=== PATIENT | female | born 1990 | race Caucasian/White ===

== ENCOUNTER 2016-07-19 11:50 | Inpatient (IN) | payer BC, MEDICAID ==
[~2016-07-19] VITALS: Ht 162.6 cm; Wt 85.8 kg
[2016-08-26] VITALS (55 sets, daily range): BP systolic 102–147; BP diastolic 55–92; PULSE 51–96; TEMP 97.7–98.4
[2016-08-26] MEDS ORDERED: PRENATAL MVI (07:30)
[2016-08-26] MEDS ORDERED: ZANTAC 7575 MG PO (07:31)
[2016-08-26 07:52] LABS: BASO % 0.1 % (0.0-2.0); EOS # 0.1 (0.0-0.7); EOS % 1.4 % (0-4.0); GRAN # 6.7 (1.4-6.5); GRAN % 72.8 % (42.2-75.2); HEMOGLOBIN 13.4 g/dl (12.5-16.0); LYMPH # 1.9 (1.2-3.4); LYMPH % 20.1 % (20.0-51.0); MEAN CELL VOLUME 87 fl (80.0-100.0); MEAN CORPUSCULAR HEMOGLOBIN 30 pg (27.0-31.0); MEAN CORPUSCULAR HGB CONC 34 g/dl (33.0-37.0); MEAN PLATELET VOLUME 13.1 fl (7.4-10.4); MONO # 0.5 (0.1-0.6); MONO % 5.2 % (1.7-9.3); PLATELET COUNT 162 K/mm3 (130-400); RED BLOOD COUNT 4.49 M/mm3 (4.10-5.30); REDCELL DISTRIBUTION WIDTH-CV 14.3 % (11.5-14.5); WHITE BLOOD COUNT 9.3 K/mm3 (4.8-10.8)
[2016-08-26] MEDS ORDERED: MOTRIN 800800 MG/TAB PO (08:52)
[2016-08-26] MEDS ORDERED: PERCOCET 325 MG1 TA2 PO (08:52)
[2016-08-27 02:00] VITALS: BP 122/65; PULSE 61; TEMP 98.6
[2016-08-27 05:15] VITALS: BP 117/70; PULSE 72; TEMP 97.9
[2016-08-27 07:30] VITALS: BP 118/67; PULSE 69; TEMP 98.6
[2016-08-27 16:15] VITALS: BP 113/78; PULSE 86; TEMP 97.8
[2016-08-27 18:45] VITALS: BP 126/84; PULSE 85; TEMP 98
[2016-08-28 06:40] VITALS: BP 119/71; PULSE 78; TEMP 98.4
[2016-08-28] MEDS ORDERED: IBU800 M1 PO (09:26)
[2016-08-28] MEDS ORDERED: PERCOCET 325 MG1 TA2 PO (09:26)
== END 2016-08-28 14:45 | disposition home or self-care (01) | DRG 775 ==
LOC: EDSTATUS 08-25 06:32 → LDRO 08-25 11:49 → LDR 08-26 07:08 → OB 08-26 22:02
PROVIDERS: Obstetrics & Gynecology
PROC: 10E0XZZ Delivery of Products of Conception, External Approach (ICD-10-PCS; principal; 2016-08-26)
PROC: 0KQM0ZZ Repair Perineum Muscle, Open Approach (ICD-10-PCS; 2016-08-26)
PROC: 3E033VJ Introduction of Other Hormone into Peripheral Vein, Percutaneous Approach (ICD-10-PCS; 2016-08-26)
DX: O48.0 Post-term pregnancy (principal); O99.824 Streptococcus B carrier state complicating childbirth; O70.1 Second degree perineal laceration during delivery; O75.89 Other specified complications of labor and delivery; Z3A.40 40 weeks gestation of pregnancy; Z37.0 Single live birth
CPT/HCPCS: J2210; J2405; J2540; J2590; J2795; J7120

== ENCOUNTER 2018-09-27 05:11 | Inpatient (IN) | payer MEDICAID ==
[~2018-09-27] VITALS: Ht 162.6 cm; Wt 77.3 kg
[2018-09-27] VITALS (26 sets, daily range): BP systolic 96–124; BP diastolic 54–80; PULSE 60–88; TEMP 98.1–99.6
[~2018-09-27 05:11] MED LIST: IBU800 M1 PO; MOTRIN 800800 MG/TAB PO; PERCOCET 325 MG1 TA2 PO; PRENATAL MVI; ZANTAC 7575 MG PO
--- NOTE | 2018-09-27 05:20 | NUR ---
HERE WITH SPOUSE NOW FOR WORSENING CTXS SINCE 299. STARTED LAST NITE. PAOUSES TO BREATHE THRU MODERATE INTENSITY CTXS. EFM ON. PLAN OF CARE DISCUSSED
--- NOTE | 2018-09-27 06:15 | NUR ---
Report from Angeline RN to assume care of patient at this time. Patient requests to use bathroom. EFMs on, patient up to restroom. Encouraged to ambulate around room and then this RN will recheck SVE. at bedside, call light within reach.
--- NOTE | 2018-09-27 06:30 | NUR ---
Patient reports continued painful contractions, states pain is more intense than when patient arrived on unit. SVE 4-5/80/-2, soft, midposition. Will notify for further orders.
--- NOTE | 2018-09-27 07:00 | NUR ---
Plan of care discussed with patient and . Questions answered. IV attempted x1 by this RN. IV attempted x1 and then started by Pankaj RN in right hand, LR infusing per orders. Consents signed by .
--- NOTE | 2018-09-27 07:30 | NUR ---
Report to Adriane RN to assume care of patient at this time.
[2018-09-27 07:49] LABS: BASO % 0.1 % (0.0-2.0); EOS # 0.1 (0.0-0.7); EOS % 0.7 % (0-4.0); GRAN # 7.4 (1.4-6.5); GRAN % 71.6 % (42.2-75.2); HEMOGLOBIN 11.9 g/dl (12.5-16.0); LYMPH # 2.2 (1.2-3.4); LYMPH % 21.2 % (20.0-51.0); MEAN CELL VOLUME 87 fl (80.0-100.0); MEAN CORPUSCULAR HEMOGLOBIN 28 pg (27.0-31.0); MEAN CORPUSCULAR HGB CONC 33 g/dl (33.0-37.0); MEAN PLATELET VOLUME 12.3 fl (7.4-10.4); MONO # 0.6 (0.1-0.6); PLATELET COUNT 170 K/mm3 (130-400)
[2018-09-27 07:54] LABS: HEMATOCRIT 36.4 % (37.0-47.0)
--- NOTE | 2018-09-27 08:50 | NUR ---
PATIENT HAVING THE FOLLOWING BLOOD PRESSURES: 75/38 72/42 68/36 67/37 87/53 127/[address] D[address] ROOM[address] ALMAGUER IN ROOM. HEART TONES AUDIBLE. NOT TRACING ON EFM. PATIENT LEFT LATERAL AT THIS TIME.
--- NOTE | 2018-09-27 11:18 | NUR ---
DR ALMAGUER CALLED AT 1104 TO COME [address]OSPITAL. DR ALMAGUER IN ROOM AT 1109. PATIENT PUSHING INTERMITTENTLY AT 1109. DELIVERY OF VIABLE FEMALE AT 1118. TO MOTHERS CHEST. FATHER OF BABY CUT CORD. PLACENTS DELIVERED AT 1121. PITOCIN STARTED AT 333 MLS/ HR 2ND DEGREE REPAIRED BY DR ALMAGUER. PATIENT GIVEN CHRIS CARE. ICE PACK TO PERINEUM AT THIS TIME. RECOVERY STARTED AT 1125
--- NOTE | 2018-09-27 13:15 | NUR ---
1315- Pt report received from KAYLEE Forrest. This RN assumes care at this time.
[2018-09-28 04:07] VITALS: BP 110/68; PULSE 64
[2018-09-28 09:00] VITALS: BP 111/68; PULSE 59; TEMP 98.6
--- NOTE | 2018-09-28 10:43 | NUR ---
Initial visit; Parents thanked Hotel Assistant Manager for offering congratulations and God's blessings for the of their daughter. Hotel Assistant Manager thanked them for choosing [facility].
[2018-09-28] MEDS ORDERED: MOTRIN 800800 MG/TAB PO (11:53)
== END 2018-09-28 15:35 | disposition home or self-care (01) | DRG 807 ==
LOC: LDR 05:11 → LDRO 05:11 → LDR 05:12 → OB 06:35 → LDR 06:35 → LDRO 06:35 → OB 14:30
PROVIDERS: ADMIT Obstetrics & Gynecology
PROC: 0KQM0ZZ Repair Perineum Muscle, Open Approach (ICD-10-PCS; principal; 2018-09-27)
PROC: 10E0XZZ Delivery of Products of Conception, External Approach (ICD-10-PCS; principal; 2018-09-27)
DX: O70.1 Second degree perineal laceration during delivery (principal); Z37.0 Single live birth; Z3A.39 39 weeks gestation of pregnancy; O69.81X0 Labor and delivery complicated by cord around neck, without compression, not applicable or unspecified; O76 Abnormality in fetal heart rate and rhythm complicating labor and delivery
CPT/HCPCS: J2590; J7120